=== PATIENT | female | born 1960 | race Caucasian/White ===

== ENCOUNTER → 2024-01-12 07:22 | Outpatient (REF) | payer BC, SELFPAY | LOC: HWWDC 07:22 | PROVIDERS: ATTENDING PHYSICIAN Obstetrics & Gynecology Gynecology; FAMILY PHYSICIAN Family Medicine | DX: Z12.31 Encounter for screening mammogram for malignant neoplasm of breast (principal) | CPT/HCPCS: 77063; 77067 ==

== ENCOUNTER → 2025-01-12 06:36 | Outpatient (REF) | payer MEDICARE, BC, SELFPAY | LOC: HWWDC 06:36 | PROVIDERS: ATTENDING PHYSICIAN Obstetrics & Gynecology Gynecology; FAMILY PHYSICIAN Nurse Practitioner Family | DX: Z12.31 Encounter for screening mammogram for malignant neoplasm of breast (principal); R05.1 Acute cough | CPT/HCPCS: 71046; 77063; 77067 ==